=== PATIENT | male | born 1950 | race Caucasian/White ===

== ENCOUNTER 2018-06-20 09:15 | Outpatient (CLI) | payer MEDICARE | END 2018-06-20 09:16 | disposition EMS.NT | LOC: EMS 09:15 | PROVIDERS: ATTEND Surgery | DX: S61.215A Laceration without foreign body of left ring finger without damage to nail, initial encounter (principal); S00.01XA Abrasion of scalp, initial encounter; S20.419A Abrasion of unspecified back wall of thorax, initial encounter; V48.7XXA Person on outside of car injured in noncollision transport accident in traffic accident, initial encounter; Y92.410 Unspecified street and highway as the place of occurrence of the external cause ==

== ENCOUNTER 2018-06-20 10:14 | Emergency (ER) | payer MEDICARE ==
[2018-06-20 10:35] VITALS: BP 123/72
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
[2018-06-20] MEDS ORDERED: BUFFERED LIDOCAINE 10 ML SYRINGE ONE (12:50)
[2018-06-20] MEDS ORDERED: cephALEXin 250 MG CAPSULE PO STA (12:54)
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
[2018-06-20] MEDS ORDERED: BACITRACIN OINT TOP ONE (13:39)
== END 2018-06-20 14:05 | disposition home or self-care (01) ==
LOC: ED 10:14
DX: S62.634B Displaced fracture of distal phalanx of right ring finger, initial encounter for open fracture (principal); S00.01XA Abrasion of scalp, initial encounter; S40.212A Abrasion of left shoulder, initial encounter; V09.00XA Pedestrian injured in nontraffic accident involving unspecified motor vehicles, initial encounter; Y92.008 Other place in unspecified non-institutional (private) residence as the place of occurrence of the external cause
CPT/HCPCS: 12032; 73140; 99283; A9270